=== PATIENT | female | born 1955 | race Two or more races ===

== ENCOUNTER 2017-08-10 07:12 | Outpatient (CLI) | payer OTHER | END 2017-08-10 07:21 | disposition home or self-care (01) | LOC: LAB 07:12 | DX: C73 Malignant neoplasm of thyroid gland (principal); E89.0 Postprocedural hypothyroidism ==

== ENCOUNTER 2017-08-12 14:11 | Outpatient (CLI) | payer OTHER | END 2017-08-12 15:00 | disposition home or self-care (01) | LOC: SONOGRAMA 14:11 → NUCLEAR 14:11 → SONOGRAMA 14:16 → NUCLEAR 15:00 → SONOGRAMA 08-16 10:27 → NUCLEAR 08-16 10:27 | DX: C73 Malignant neoplasm of thyroid gland (principal); E89.0 Postprocedural hypothyroidism | CPT/HCPCS: 79005; A9517 ==

== ENCOUNTER 2017-08-16 10:23 | Outpatient (CLI) | payer OTHER | END 2017-08-16 11:00 | disposition home or self-care (01) | LOC: NUCLEAR 10:23 | DX: C73 Malignant neoplasm of thyroid gland (principal); E89.0 Postprocedural hypothyroidism ==

== ENCOUNTER → 2018-04-29 | Outpatient (CLI) | payer OTHER | END | disposition home or self-care (01) | LOC: TOM 04-25 07:30 | DX: K56.600 Partial intestinal obstruction, unspecified as to cause (principal) ==

== ENCOUNTER → 2018-08-26 | Outpatient (CLI) | payer OTHER | END | disposition home or self-care (01) | LOC: NUCLEAR 11:28 | DX: C73 Malignant neoplasm of thyroid gland (principal) | CPT/HCPCS: 78018; 78020; A9528 ==